=== PATIENT | female | born 1970 | race Caucasian/White ===

== ENCOUNTER 2018-07-21 11:51 | Inpatient (IN) | payer BC ==
[~2018-07-21] VITALS: Ht 172.7 cm; Wt 127.9 kg
[2018-07-21 11:51] VITALS: BP_SYST 107
[2018-07-21 14:56] LABS: CALCIUM 8.8 mg/dL (8.4-11.0); CREATININE 1.14 mg/dL (0.55-1.30); POTASSIUM 3.9 mmol/L (3.5-5.1)
[2018-07-21 14:58] LABS: HEMOGLOBIN 9.2 g/dL (12.0-16.0); WHITE BLOOD COUNT (AUTO) 8.5 K/uL (4.8-10.8)
[2018-07-21 14:59] LABS: BASOPHILS % (AUTO) 0.6 % (0.0-2.0); EOSINOPHILS # (AUTO) 0.2 K/uL (0.0-0.4); LYMPHOCYTES # (AUTO) 1.7 K/uL (1.0-5.5); LYMPHOCYTES % (AUTO) 20.3 % (20.5-51.5); MEAN CORPUSCULAR HEMOGLOBIN 25 pg (27-31); MEAN CORPUSCULAR HGB CONC 32 % (32-36); MEAN CORPUSCULAR VOLUME 81 fL (79.0-98.0); MONOCYTES # (AUTO) 0.8 K/uL (0.0-1.0); MONOCYTES % (AUTO) 9.2 % (1.7-9.3); NEUTROPHILS # (AUTO) 5.8 K/uL (1.8-7.7); NEUTROPHILS % (AUTO) 67.9 % (40.0-70.0); PLATELET COUNT (AUTO) 227 K/uL (130-430)
[2018-07-21 15:02] LABS: ALBUMIN 2.9 g/dL (3.4-4.8); TOTAL BILIRUBIN 0.4 mg/dL (0.0-1.0)
[2018-07-21 15:06] LABS: INR 1.1 (0.8-1.2); PROTHROMBIN TIME 10.9 SECS (9.5-12.5)
[2018-07-21 15:58] LABS: BILIRUBIN,URINE NEGATIVE (NEGATIVE); BLOOD, URINE 2+ (NEGATIVE); CLARITY/URINE SL CLOUDY (CLEAR); COLOR,URINE YELLOW (YELLOW); GLUCOSE,URINE NEGATIVE (NEGATIVE); KETONES,URINE NEGATIVE (NEGATIVE); LEUKOCYTE ESTERASE ,URINE 3+ (NEGATIVE); NITRITE, URINE POSITIVE (NEGATIVE); PH,URINE 5.5 (5.0-8.0); PROTEIN URINE NEGATIVE (NEGATIVE); UROBILINOGEN,URINE 0.2 (0.2-1.0)
[2018-07-21 16:06] LABS: BACTERIA,URINE MODERATE /HPF (None Seen); MUCUS,URINE 1+ /LPF (None Seen); RBC,URINE 20-50 /HPF (0-3); WBC,URINE >100 /HPF (0-3)
[2018-07-21 16:10] LABS: BARBITURATE, URINE NEGATIVE (NEG <=200); BENZODIAZEPINE, URINE NEGATIVE (NEG <=150); CANNABINOID, URINE NEGATIVE (NEG <=50); COCAINE, URINE NEGATIVE (NEG <=150); METHAMPHETAMINES SCREEN,URINE NEGATIVE (NEG <=500); OPIATE, URINE NEGATIVE (NEG <=100); PHENCYCLIDINE SCREEN,URINE NEGATIVE (NEG <=25); UR TRICYCLIC ANTIDEPRESSANTS NEGATIVE (NEG <=300); URINE AMPHETAMINE NEGATIVE (NEG <=500); URINE METHADONE NEGATIVE (NEG <=200); URINE OXYCODONE SCREEN NEGATIVE (NEG <=100); URINE PROPOXYPHENE SCREEN NEGATIVE (NEG <=300)
[2018-07-21] MEDS ORDERED: LIP10 PO (18:50)
[2018-07-21] MEDS ORDERED: ACET325T53 PO (18:50)
[2018-07-21] MEDS ORDERED: FLUT1DIS3 IH (18:50)
[2018-07-21] MEDS ORDERED: CORCR10 PO (18:50)
[2018-07-21] MEDS ORDERED: DOCU-144 PO (18:50)
[2018-07-21] MEDS ORDERED: ALBU2.5V7 INH (18:50)
[2018-07-21] MEDS ORDERED: OMEP20CA10 PO (19:40)
[2018-07-21] MEDS ORDERED: CLOP300T2 PO (19:40)
[2018-07-21] MEDS ORDERED: MOM PO (19:40)
[2018-07-21] MEDS ORDERED: OMEP40CA33 PO (19:40)
[2018-07-21] MEDS ORDERED: BISA-79 PO (19:40)
[2018-07-21] MEDS ORDERED: SENN8.6T19 PO (19:40)
[2018-07-21] MEDS ORDERED: LOVI120 SQ (19:40)
[2018-07-21] MEDS ORDERED: ZINC10LO5 PO (19:40)
[2018-07-21] MEDS ORDERED: PRO40 PO (19:40)
[2018-07-21] MEDS ORDERED: FERR140T2 PO (19:40)
[2018-07-21] MEDS ORDERED: LISI2.5T48 PO (19:40)
[2018-07-21] MEDS ORDERED: MYLICON PO (19:40)
[2018-07-21] MEDS ORDERED: INSU100V7 IJ (19:40)
[2018-07-21 20:29] VITALS: BP_SYST 110
[2018-07-21] MEDS ORDERED: D5W 1,000 ML IV PRN (22:48)
[2018-07-21] MEDS ORDERED: HYDROcodone/ACETAMIN 10-325 MG TAB PO PRN (23:00)
[2018-07-21] MEDS ORDERED: LORazepam 2 MG/ML VIAL IVP PRN (23:00)
[2018-07-21] MEDS ORDERED: ONDANSETRON HCL 4 MG/2 ML VIAL IVP PRN (23:00)
[2018-07-21] MEDS ORDERED: ALBUTEROL SULFATE 0.083% 2.5 MG/3 ML VIAL.NEB INH PRN (23:00)
[2018-07-21] MEDS ORDERED: GLUCOSE 15 GM GEL (in 37.5 GM TUBE) PO PRN (23:00)
[2018-07-21] MEDS ORDERED: HYDROcodone/ACETAMIN 5-325 MG TAB (NORCO/ VICODIN) PO PRN (23:00)
[2018-07-21] MEDS ORDERED: DEXTROSE 50% JECT 50 ML DISP.SYRIN IVP PRN (23:00)
[2018-07-21] MEDS ORDERED: ACETAMINOPHEN 325 MG TABLET PO PRN ×2 (23:00)
[2018-07-21] MEDS ORDERED: LEVOFLOXACIN 500 MG/D5W 100 ML IV ONE (23:57)
[2018-07-22 00:10] VITALS: BP_SYST 108; BP_SYST 114
[2018-07-22] MEDS ORDERED: LEVOFLOXACIN 500 MG/D5W 100 ML IV SCH (00:15)
[2018-07-22] MEDS ORDERED: LEVOFLOXACIN 500 MG/D5W 100 ML IV ONE (00:15)
[2018-07-22 00:30] VITALS: BP_SYST 110
[2018-07-22] MEDS: NORMAL SALINE 5 ML DISP.SYRIN IVF SCH ×3 (05:32→21:55)
[2018-07-22 07:20] LABS: CALCIUM 8.4 mg/dL (8.4-11.0); CREATININE 1.13 mg/dL (0.55-1.30); POTASSIUM 3.6 mmol/L (3.5-5.1)
[2018-07-22 07:27] LABS: ALBUMIN 2.6 g/dL (3.4-4.8); TOTAL BILIRUBIN 0.3 mg/dL (0.0-1.0)
[2018-07-22 07:32] LABS: HEMATOCRIT 26.3 % (36-48); HEMOGLOBIN 8.3 g/dL (12.0-16.0); LYMPHOCYTES % (AUTO) 25.6 % (20.5-51.5); MEAN CORPUSCULAR HEMOGLOBIN 25 pg (27-31); MEAN CORPUSCULAR HGB CONC 31 % (32-36); MEAN CORPUSCULAR VOLUME 80 fL (79.0-98.0); MONOCYTES % (AUTO) 10.2 % (1.7-9.3); NEUTROPHILS % (AUTO) 60.9 % (40.0-70.0); PLATELET COUNT (AUTO) 188 K/uL (130-430); RED BLOOD CELL COUNT(AUTO) 3.29 MIL/uL (4.2-6.2); RED CELL DISTRIBUTION WIDTH 18.5 % (9.0-15.0); WHITE BLOOD COUNT (AUTO) 5.6 K/uL (4.8-10.8)
[2018-07-22 07:33] LABS: BASOPHILS % (AUTO) 0.5 % (0.0-2.0); EOSINOPHILS # (AUTO) 0.2 K/uL (0.0-0.4); EOSINOPHILS % (AUTO) 2.8 % (0.0-4.0); LYMPHOCYTES # (AUTO) 1.4 K/uL (1.0-5.5); MONOCYTES # (AUTO) 0.6 K/uL (0.0-1.0); NEUTROPHILS # (AUTO) 3.4 K/uL (1.8-7.7)
[2018-07-22 08:00] VITALS: BP_SYST 133
[2018-07-22] MEDS ORDERED: SALMETEROL IH ONE (09:00)
[2018-07-22] MEDS ORDERED: FLUTICASONE IH ONE (09:00)
[2018-07-22] MEDS: ATORVASTATIN 10 MG TABLET PO SCH (09:32)
[2018-07-22 11:25] VITALS: BP_SYST 118
[2018-07-22] MEDS: INSULIN REGULAR, HUMAN 100 UNITS/ML, 10 ML VIAL (novoLIN R) SUBCUT PRN ×2 (12:09→21:56)
[2018-07-22] MEDS ORDERED: CLOPIDOGREL BISULFATE 75 MG TABLET PO ONE (13:00)
[2018-07-22] MEDS ORDERED: PARoxetine HCL 20 MG TABLET PO ONE (13:45)
[2018-07-22] MEDS ORDERED: COMMUNICATION ORDER XX ONE (15:00)
[2018-07-22] MEDS ORDERED: *LOVENOX 1MG/KG Q12H/PHARMACY XX PRN (15:30)
[2018-07-22 15:34] VITALS: BP_SYST 126
[2018-07-22 20:25] VITALS: BP_SYST 133
[2018-07-22] MEDS: CEFEPIME 1 GM in D5W 50 ML IV SCH (21:47)
[2018-07-22] MEDS: LEVOFLOXACIN 500 MG/D5W 100 ML IV SCH (21:48)
[2018-07-22] MEDS: ENOXAPARIN SODIUM 120 MG/0.8 ML SYRINGE SUBCUT SCH (21:49)
[2018-07-23 00:02] VITALS: BP_SYST 139
[2018-07-23] MEDS: ALBUTEROL SULFATE 0.083% 2.5 MG/3 ML VIAL.NEB INH SCH ×4 (00:26→20:01)
[2018-07-23] MEDS: NORMAL SALINE 5 ML DISP.SYRIN IVF SCH ×3 (06:28→22:02)
[2018-07-23] MEDS: BUDESONIDE 0.5 MG/2 ML AMPUL.NEB INH SCH ×2 (07:30→20:05)
[2018-07-23 07:44] LABS: C-REACTIVE PROTEIN QUANT 1.7 mg/dL (0-0.5); CALCIUM 8.6 mg/dL (8.4-11.0); CREATININE 1.1 mg/dL (0.55-1.30); POTASSIUM 3.8 mmol/L (3.5-5.1)
[2018-07-23 08:04] VITALS: BP_SYST 117
[2018-07-23] MEDS: ATORVASTATIN 10 MG TABLET PO SCH (08:22)
[2018-07-23] MEDS: PARoxetine HCL 20 MG TABLET PO SCH (08:22)
[2018-07-23] MEDS: CLOPIDOGREL BISULFATE 75 MG TABLET PO SCH (08:22)
[2018-07-23 08:23] LABS: WHITE BLOOD COUNT (AUTO) 5.6 K/uL (4.8-10.8)
[2018-07-23] MEDS: CEFEPIME 1 GM in D5W 50 ML IV SCH ×2 (08:23→21:58)
[2018-07-23 08:24] LABS: BASOPHILS % (AUTO) 0.6 % (0.0-2.0); EOSINOPHILS # (AUTO) 0.2 K/uL (0.0-0.4); EOSINOPHILS % (AUTO) 3.4 % (0.0-4.0); ERYTHROCYTE SEDIMENTATION RATE 92 MM/HR (0-20); HEMATOCRIT 25.9 % (36-48); HEMOGLOBIN 8.3 g/dL (12.0-16.0); LYMPHOCYTES # (AUTO) 1.7 K/uL (1.0-5.5); LYMPHOCYTES % (AUTO) 30.1 % (20.5-51.5); MEAN CORPUSCULAR HEMOGLOBIN 26 pg (27-31); MEAN CORPUSCULAR HGB CONC 32 % (32-36); MEAN CORPUSCULAR VOLUME 80 fL (79.0-98.0); MONOCYTES # (AUTO) 0.6 K/uL (0.0-1.0); MONOCYTES % (AUTO) 10.1 % (1.7-9.3); NEUTROPHILS # (AUTO) 3.1 K/uL (1.8-7.7); NEUTROPHILS % (AUTO) 55.8 % (40.0-70.0); PLATELET COUNT (AUTO) 192 K/uL (130-430); RED BLOOD CELL COUNT(AUTO) 3.24 MIL/uL (4.2-6.2); RED CELL DISTRIBUTION WIDTH 18.9 % (9.0-15.0)
[2018-07-23] MEDS: ENOXAPARIN SODIUM 120 MG/0.8 ML SYRINGE SUBCUT SCH ×2 (08:29→21:57)
[2018-07-23 11:23] VITALS: BP_SYST 142
[2018-07-23 15:13] VITALS: BP_SYST 114
[2018-07-23 20:15] VITALS: BP_SYST 127
[2018-07-23] MEDS: LEVOFLOXACIN 500 MG/D5W 100 ML IV SCH (21:59)
[2018-07-24] MEDS: ALBUTEROL SULFATE 0.083% 2.5 MG/3 ML VIAL.NEB INH SCH ×4 (01:00→19:30)
[2018-07-24 01:20] LABS: BILIRUBIN,URINE NEGATIVE (NEGATIVE); BLOOD, URINE NEGATIVE (NEGATIVE); CLARITY/URINE CLEAR (CLEAR); COLOR,URINE YELLOW (YELLOW); GLUCOSE,URINE NEGATIVE (NEGATIVE); KETONES,URINE NEGATIVE (NEGATIVE); LEUKOCYTE ESTERASE ,URINE 2+ (NEGATIVE); NITRITE, URINE NEGATIVE (NEGATIVE); PROTEIN URINE NEGATIVE (NEGATIVE); UROBILINOGEN,URINE 0.2 (0.2-1.0)
[2018-07-24 01:34] LABS: BACTERIA,URINE FEW /HPF (None Seen); RBC,URINE 0-3 /HPF (0-3)
[2018-07-24 01:52] VITALS: BP_SYST 128
[2018-07-24] MEDS: NORMAL SALINE 5 ML DISP.SYRIN IVF SCH ×3 (06:47→21:05)
[2018-07-24] MEDS: BUDESONIDE 0.5 MG/2 ML AMPUL.NEB INH SCH ×2 (07:00→19:00)
[2018-07-24 07:16] LABS: C-REACTIVE PROTEIN QUANT 1.2 mg/dL (0-0.5); CALCIUM 8.8 mg/dL (8.4-11.0); CREATININE 0.9 mg/dL (0.55-1.30); POTASSIUM 3.7 mmol/L (3.5-5.1)
[2018-07-24 07:21] LABS: WHITE BLOOD COUNT (AUTO) 5.3 K/uL (4.8-10.8)
[2018-07-24 07:22] LABS: BASOPHILS % (AUTO) 0.7 % (0.0-2.0); EOSINOPHILS % (AUTO) 2.9 % (0.0-4.0); HEMOGLOBIN 7.9 g/dL (12.0-16.0); LYMPHOCYTES # (AUTO) 1.5 K/uL (1.0-5.5); LYMPHOCYTES % (AUTO) 27.4 % (20.5-51.5); MEAN CORPUSCULAR HEMOGLOBIN 25 pg (27-31); MEAN CORPUSCULAR HGB CONC 32 % (32-36); MEAN CORPUSCULAR VOLUME 80 fL (79.0-98.0); MONOCYTES % (AUTO) 9.3 % (1.7-9.3); NEUTROPHILS # (AUTO) 3.2 K/uL (1.8-7.7); NEUTROPHILS % (AUTO) 59.7 % (40.0-70.0); PLATELET COUNT (AUTO) 174 K/uL (130-430); RED BLOOD CELL COUNT(AUTO) 3.13 MIL/uL (4.2-6.2); RED CELL DISTRIBUTION WIDTH 18.8 % (9.0-15.0)
[2018-07-24 07:23] LABS: EOSINOPHILS # (AUTO) 0.2 K/uL (0.0-0.4); MONOCYTES # (AUTO) 0.5 K/uL (0.0-1.0)
[2018-07-24 08:07] VITALS: BP_SYST 117
[2018-07-24 08:17] LABS: TOTAL IRON BIND. CAPACITY 265 ug/dL (250-450)
[2018-07-24] MEDS: CEFEPIME 1 GM in D5W 50 ML IV SCH ×2 (08:42→20:53)
[2018-07-24] MEDS: ENOXAPARIN SODIUM 120 MG/0.8 ML SYRINGE SUBCUT SCH ×2 (08:43→20:56)
[2018-07-24] MEDS: CLOPIDOGREL BISULFATE 75 MG TABLET PO SCH (08:44)
[2018-07-24] MEDS: PARoxetine HCL 20 MG TABLET PO SCH (08:44)
[2018-07-24] MEDS: ATORVASTATIN 10 MG TABLET PO SCH (08:44)
[2018-07-24 09:08] LABS: ERYTHROCYTE SEDIMENTATION RATE 91 MM/HR (0-20)
[2018-07-24 11:30] VITALS: BP_SYST 137
[2018-07-24 15:36] VITALS: BP_SYST 128
[2018-07-24 19:47] VITALS: BP_SYST 136
[2018-07-24] MEDS: LEVOFLOXACIN 500 MG/D5W 100 ML IV SCH (20:53)
[2018-07-25] MEDS: ALBUTEROL SULFATE 0.083% 2.5 MG/3 ML VIAL.NEB INH SCH ×4 (01:22→19:31)
[2018-07-25 01:49] VITALS: BP_SYST 110
[2018-07-25] MEDS: NORMAL SALINE 5 ML DISP.SYRIN IVF SCH ×3 (06:36→21:55)
[2018-07-25] MEDS: BUDESONIDE 0.5 MG/2 ML AMPUL.NEB INH SCH ×2 (07:00→19:00)
[2018-07-25 07:53] LABS: C-REACTIVE PROTEIN QUANT 1.7 mg/dL (0-0.5); CALCIUM 8.6 mg/dL (8.4-11.0); CREATININE 0.76 mg/dL (0.55-1.30); POTASSIUM 3.7 mmol/L (3.5-5.1)
[2018-07-25 08:00] VITALS: BP_SYST 130
[2018-07-25 08:52] LABS: WHITE BLOOD COUNT (AUTO) 5.2 K/uL (4.8-10.8)
[2018-07-25 08:53] LABS: HEMOGLOBIN 7.9 g/dL (12.0-16.0); MEAN CORPUSCULAR HEMOGLOBIN 25 pg (27-31); MEAN CORPUSCULAR HGB CONC 32 % (32-36); MEAN CORPUSCULAR VOLUME 80 fL (79.0-98.0); PLATELET COUNT (AUTO) 172 K/uL (130-430); RED BLOOD CELL COUNT(AUTO) 3.14 MIL/uL (4.2-6.2); RED CELL DISTRIBUTION WIDTH 18.8 % (9.0-15.0)
[2018-07-25 08:54] LABS: BASOPHILS % (AUTO) 0.8 % (0.0-2.0); EOSINOPHILS % (AUTO) 2.4 % (0.0-4.0); LYMPHOCYTES % (AUTO) 29.1 % (20.5-51.5); MONOCYTES % (AUTO) 6.7 % (1.7-9.3); NEUTROPHILS # (AUTO) 3.2 K/uL (1.8-7.7)
[2018-07-25 08:55] LABS: EOSINOPHILS # (AUTO) 0.1 K/uL (0.0-0.4); LYMPHOCYTES # (AUTO) 1.5 K/uL (1.0-5.5); MONOCYTES # (AUTO) 0.3 K/uL (0.0-1.0)
[2018-07-25] MEDS: CEFEPIME 1 GM in D5W 50 ML IV SCH ×2 (09:54→21:55)
[2018-07-25] MEDS: CLOPIDOGREL BISULFATE 75 MG TABLET PO SCH (09:54)
[2018-07-25] MEDS: PARoxetine HCL 20 MG TABLET PO SCH (09:55)
[2018-07-25] MEDS: ENOXAPARIN SODIUM 120 MG/0.8 ML SYRINGE SUBCUT SCH ×2 (09:55→21:56)
[2018-07-25] MEDS: ATORVASTATIN 10 MG TABLET PO SCH (09:55)
[2018-07-25 10:22] LABS: ERYTHROCYTE SEDIMENTATION RATE 98 MM/HR (0-20)
[2018-07-25 11:49] VITALS: BP_SYST 116
[2018-07-25 13:45] VITALS: BP_SYST 116
[2018-07-25 15:34] VITALS: BP_SYST 126
[2018-07-25 20:00] VITALS: BP_SYST 123
[2018-07-25] MEDS: LEVOFLOXACIN 500 MG/D5W 100 ML IV SCH (21:55)
[2018-07-26 00:06] VITALS: BP_SYST 140
[2018-07-26] MEDS: ALBUTEROL SULFATE 0.083% 2.5 MG/3 ML VIAL.NEB INH SCH ×4 (00:50→19:41)
[2018-07-26 06:07] LABS: FERRITIN 35 ng/mL (15-150); FOLATE (FOLIC ACID) >20.0 ng/mL (>3.0)
[2018-07-26] MEDS: NORMAL SALINE 5 ML DISP.SYRIN IVF SCH ×3 (06:19→22:55)
[2018-07-26 06:52] LABS: HEMATOCRIT 25.4 % (36-48); RED BLOOD CELL COUNT(AUTO) 3.17 MIL/uL (4.2-6.2); WHITE BLOOD COUNT (AUTO) 5.1 K/uL (4.8-10.8)
[2018-07-26 06:53] LABS: BASOPHILS % (AUTO) 0.7 % (0.0-2.0); EOSINOPHILS % (AUTO) 3.4 % (0.0-4.0); LYMPHOCYTES # (AUTO) 1.5 K/uL (1.0-5.5); LYMPHOCYTES % (AUTO) 28.6 % (20.5-51.5); MEAN CORPUSCULAR HEMOGLOBIN 25 pg (27-31); MEAN CORPUSCULAR HGB CONC 31 % (32-36); MEAN CORPUSCULAR VOLUME 80 fL (79.0-98.0); MONOCYTES # (AUTO) 0.4 K/uL (0.0-1.0); MONOCYTES % (AUTO) 8.2 % (1.7-9.3); NEUTROPHILS % (AUTO) 59.1 % (40.0-70.0); PLATELET COUNT (AUTO) 155 K/uL (130-430); RED CELL DISTRIBUTION WIDTH 18.4 % (9.0-15.0)
[2018-07-26 06:54] LABS: EOSINOPHILS # (AUTO) 0.2 K/uL (0.0-0.4)
[2018-07-26 06:56] LABS: C-REACTIVE PROTEIN QUANT 1.9 mg/dL (0-0.5); CALCIUM 8.7 mg/dL (8.4-11.0); CREATININE 0.72 mg/dL (0.55-1.30); POTASSIUM 3.8 mmol/L (3.5-5.1)
[2018-07-26] MEDS: BUDESONIDE 0.5 MG/2 ML AMPUL.NEB INH SCH ×2 (07:00→19:00)
[2018-07-26 08:00] LABS: ERYTHROCYTE SEDIMENTATION RATE 97 MM/HR (0-20)
[2018-07-26 08:21] VITALS: BP_SYST 125
[2018-07-26] MEDS: CEFEPIME 1 GM in D5W 50 ML IV SCH (08:45)
[2018-07-26] MEDS: ATORVASTATIN 10 MG TABLET PO SCH (08:45)
[2018-07-26] MEDS: PARoxetine HCL 20 MG TABLET PO SCH (08:45)
[2018-07-26] MEDS: CLOPIDOGREL BISULFATE 75 MG TABLET PO SCH (08:45)
[2018-07-26] MEDS: ENOXAPARIN SODIUM 120 MG/0.8 ML SYRINGE SUBCUT SCH ×2 (08:46→22:56)
[2018-07-26 11:47] VITALS: BP_SYST 117
[2018-07-26] MEDS ORDERED: PARO-63 PO (12:28)
[2018-07-26] MEDS ORDERED: LEVO750T45 PO (12:30)
[2018-07-26] MEDS ORDERED: LOVI120 SQ (14:09)
[2018-07-26 15:33] VITALS: BP_SYST 137
[2018-07-26 20:00] VITALS: BP_SYST 140
[2018-07-27 00:46] VITALS: BP_SYST 119
[2018-07-27] MEDS: ALBUTEROL SULFATE 0.083% 2.5 MG/3 ML VIAL.NEB INH SCH ×3 (00:49→13:57)
[2018-07-27 07:46] LABS: C-REACTIVE PROTEIN QUANT 1.6 mg/dL (0-0.5); CALCIUM 8.9 mg/dL (8.4-11.0); CREATININE 0.64 mg/dL (0.55-1.30); POTASSIUM 3.8 mmol/L (3.5-5.1)
[2018-07-27] MEDS: BUDESONIDE 0.5 MG/2 ML AMPUL.NEB INH SCH (08:02)
[2018-07-27 08:03] LABS: HEMATOCRIT 25.2 % (36-48); HEMOGLOBIN 8.1 g/dL (12.0-16.0); MEAN CORPUSCULAR VOLUME 80 fL (79.0-98.0); RED BLOOD CELL COUNT(AUTO) 3.16 MIL/uL (4.2-6.2); WHITE BLOOD COUNT (AUTO) 5.4 K/uL (4.8-10.8)
[2018-07-27 08:04] LABS: BASOPHILS % (AUTO) 0.8 % (0.0-2.0); EOSINOPHILS % (AUTO) 4.7 % (0.0-4.0); LYMPHOCYTES % (AUTO) 32.9 % (20.5-51.5); MEAN CORPUSCULAR HEMOGLOBIN 26 pg (27-31); MEAN CORPUSCULAR HGB CONC 32 % (32-36); NEUTROPHILS # (AUTO) 2.9 K/uL (1.8-7.7); NEUTROPHILS % (AUTO) 54.6 % (40.0-70.0); PLATELET COUNT (AUTO) 154 K/uL (130-430); RED CELL DISTRIBUTION WIDTH 18.8 % (9.0-15.0)
[2018-07-27 08:05] LABS: EOSINOPHILS # (AUTO) 0.3 K/uL (0.0-0.4); LYMPHOCYTES # (AUTO) 1.8 K/uL (1.0-5.5); MONOCYTES # (AUTO) 0.4 K/uL (0.0-1.0)
[2018-07-27 08:44] LABS: ERYTHROCYTE SEDIMENTATION RATE 92 MM/HR (0-20)
[2018-07-27] MEDS: PARoxetine HCL 20 MG TABLET PO SCH (09:00)
[2018-07-27] MEDS: ENOXAPARIN SODIUM 120 MG/0.8 ML SYRINGE SUBCUT SCH (09:00)
[2018-07-27] MEDS: ATORVASTATIN 10 MG TABLET PO SCH (09:00)
[2018-07-27] MEDS: CLOPIDOGREL BISULFATE 75 MG TABLET PO SCH (09:00)
[2018-07-27] MEDS ORDERED: LEVOFLOXACIN 250 MG TABLET PO SCH (10:00)
[2018-07-27 11:05] VITALS: BP_SYST 119
[2018-07-27 11:23] VITALS: BP_SYST 149
[2018-07-27] MEDS: NORMAL SALINE 5 ML DISP.SYRIN IVF SCH ×2 (15:06→15:07)
[2018-07-27 15:28] VITALS: BP_SYST 119
== END 2018-07-27 19:15 | DRG 871 ==
LOC: SED 11:51 → SMU 19:01 → STU 20:09 → SMU 07-24 18:23
PROVIDERS: ADMIT Preventive Medicine Preventive Medicine/Occupational Environmental Medicine; ATTEND Preventive Medicine Preventive Medicine/Occupational Environmental Medicine
DX: A41.9 Sepsis, unspecified organism (principal); J18.9 Pneumonia, unspecified organism; N39.0 Urinary tract infection, site not specified; E87.1 Hypo-osmolality and hyponatremia; I82.411 Acute embolism and thrombosis of right femoral vein; I82.432 Acute embolism and thrombosis of left popliteal vein; Z68.41 Body mass index [BMI] 40.0-44.9, adult; B96.1 Klebsiella pneumoniae [K. pneumoniae] as the cause of diseases classified elsewhere; W07.XXXA Fall from chair, initial encounter; I13.10 Hypertensive heart and chronic kidney disease without heart failure, with stage 1 through stage 4 chronic kidney disease, or unspecified chronic kidney disease; E78.5 Hyperlipidemia, unspecified; B96.89 Other specified bacterial agents as the cause of diseases classified elsewhere; R55 Syncope and collapse; I08.2 Rheumatic disorders of both aortic and tricuspid valves; E88.09 Other disorders of plasma-protein metabolism, not elsewhere classified; N18.9 Chronic kidney disease, unspecified; E11.22 Type 2 diabetes mellitus with diabetic chronic kidney disease; D64.9 Anemia, unspecified; E11.65 Type 2 diabetes mellitus with hyperglycemia; E66.01 Morbid (severe) obesity due to excess calories; Z90.49 Acquired absence of other specified parts of digestive tract; Z87.01 Personal history of pneumonia (recurrent); Z98.891 History of uterine scar from previous surgery; Y93.89 Activity, other specified; Y92.128 Other place in nursing home as the place of occurrence of the external cause; Y99.8 Other external cause status; Z79.899 Other long term (current) drug therapy
CPT/HCPCS: 36415; 70450-TC; 71045; 80048; 80053; 80307; 81000-TC; 82272; 82607; 82728; 82746; 82962; 83540-TC; 83550-TC; 83735-TC; 84100-TC; 84484; 85025; 85610-TC; 85651-TC; 85730-TC; 86140; 87040-TC; 87081; 87086; 87186-TC; 93005; 93306; 93880; 93970; 94640; 94760; 95816; 97110-GP; 97116-GP; 97530-GP; 99285; G0378; J0692; J1650; J1815; J1956; J2060; J7060; J7613; J7626